=== PATIENT | male | born 1935 | race Caucasian/White ===

== ENCOUNTER → 2020-08-23 | Outpatient (CLI) | payer OTHER ==
[~2020-08-23] MED LIST: ACTOS15 MG PO; AMIODARONE HCL400 MG PO; AMLODIPINE BESYL5 MG PO; ASA81BEC PO; ASPIR 8181 MG PO; ASPIRIN81 M2 PO; ASPRIMOX 325 M325 MG PO; B COMPLEX WITH1 EACH PO; CORDARONE200 MG PO; COREG6.25 MG PO; COZAAR100 MG PO; ECONAZOLE NITRA30 GM; FISH OIL 1,0001 EAC5 PO; FISH OIL 1,001000 M2 PO; HYDROCODON-ACE1 EAC7 PO; HYZAAR 100-251 EACH PO; IMDUR 30 MG TAB30 M1 PO; ISOSORBIDE MONO30 M1 PO; LASIX 20 MG TAB20 MG PO; LIPITOR20 MG PO; LOSARTAN-HCTZ1 EAC1 PO; MULTI-VITAMIN1 EAC5 PO; MULTIVITAMINS1 EAC7 PO; NATURAL B-1001 EACH PO; NITROSTAT0.4 MG SUBLING; PACERONE 200 M200 MG PO; PAIN & FEVER325 MG PO; PAXIL10 MG; PERCOCET 5-3251 EACH PO; PIOGLITAZONE15 MG PO; PLAVIX 75 MG TA75 M1 PO; POTASSIUM20 PO; PRADAXA75 MG PO; PREDNISONE 20 M20 M1 PO; PRESERVISION A1 EACH PO; PROTONIX40 M1 PO; SIMVASTATIN40 MG PO; SYNTHROID100 MC1 PO; TRAMADOL HCL50 MG PO; VITAMIN B-1100 M1 PO; VITAMIN D1000 UNI1 PO; VITAMIN D31000 UNI2 PO; VITAMIN D3400 UNI2 PO; VYTORIN 10-801 EACH PO; XARELTO20 MG PO; ZETIA10 MG PO; ZOCOR40 MG PO
== END ==
LOC: SJCVC 08:25
PROVIDERS: ATTEND Internal Medicine Cardiovascular Disease
DX: Z45.018 Encounter for adjustment and management of other part of cardiac pacemaker (principal); R94.31 Abnormal electrocardiogram [ECG] [EKG]; I48.0 Paroxysmal atrial fibrillation; I25.5 Ischemic cardiomyopathy; I44.2 Atrioventricular block, complete; I73.9 Peripheral vascular disease, unspecified; I50.20 Unspecified systolic (congestive) heart failure; I11.0 Hypertensive heart disease with heart failure; E78.5 Hyperlipidemia, unspecified; I25.810 Atherosclerosis of coronary artery bypass graft(s) without angina pectoris; E11.9 Type 2 diabetes mellitus without complications; Z82.49 Family history of ischemic heart disease and other diseases of the circulatory system; Z87.891 Personal history of nicotine dependence; Z79.899 Other long term (current) drug therapy; Z86.73 Personal history of transient ischemic attack (TIA), and cerebral infarction without residual deficits; Z95.1 Presence of aortocoronary bypass graft

== ENCOUNTER → 2020-08-24 | Outpatient (CLI) | payer OTHER | LOC: LAB 07:41 | PROVIDERS: ATTEND Internal Medicine Cardiovascular Disease | DX: Z01.812 Encounter for preprocedural laboratory examination (principal); Z20.828 Contact with and (suspected) exposure to other viral communicable diseases ==

== ENCOUNTER 2020-08-29 06:24 | Observation (INO) | payer OTHER ==
[2020-08-29] VITALS (11 sets, daily range): BP systolic 139–184; BP diastolic 70–110
[~2020-08-29] VITALS: Ht 160 cm; Wt 73.1 kg
[2020-08-29 07:58] LABS: ABSOLUTE NEUTROPHILS 4.9 thou/uL (1.4-8.2); BASOPHILS 1.2 % (0.0-2.0); EOSINOPHILS 4.2 % (0.0-3.0); HEMATOCRIT 40.3 % (42.0-52.0); HEMOGLOBIN 13.3 gm/dL (14.0-18.0); LYMPHOCYTES 12.7 % (24.0-44.0); MCH 31.2 pg (26.0-34.0); MCHC 33.1 g/dL (28.0-37.0); MCV 94.2 fL (80.0-100.0); MONOCYTES 11.5 % (1.0-8.0); PLATELET COUNT 183 thou/uL (150-400); POLYS 70.4 % (36.0-66.0); RBC 4.28 mil/uL (4.50-6.00); RDW 13.2 % (10.5-14.5); WBC 6.9 thou/uL (4.0-11.0)
[2020-08-29 08:00] LABS: CREATININE 1.2 mg/dL (0.7-1.3); POTASSIUM 3.9 mmol/L (3.5-5.1)
[2020-08-29 08:01] LABS: APTT 28.6 Seconds (24.5-32.8); INR 1.1; PROTIME 10.8 Seconds (9.3-11.4)
[2020-08-29 08:08] LABS: ALBUMIN 3.9 g/dL (3.4-5.0); TOTAL BILIRUBIN 0.6 mg/dL (0.2-1.0); TOTAL PROTEIN 7.1 g/dL (6.4-8.2)
--- NOTE | 2020-08-29 20:01 | NUR ---
PT CARE ASSUMED AT 1230. ASSESSMENT CHARTED. MEDICATION CHARTED. PT HAS HIGH BP AND CHEST PAIN AT PACER SIGHT. DR HILL CONTACTED X 3. V PACED. BILAT FA IV'S. AO X 4. BI VENTRICULAR PACER REDO; UNABLE TO PASS DEFIBRILLATOR WIRE.
--- NOTE | 2020-08-30 04:30 | NUR ---
ASSESSMENTS CHARTED, MEDS CHARTED GIVEN. PATIENT WENT TO [facility] DURING THE DAY FOR A NEW PM/ICD. THEY WERE UNABLE TO THREAD NEW WIRES FOR THE ICD. PER CHEST XRAY A WIRE IS EXTENDING UP FROM LEFT PACEMAKER. PACEMAKER WILL NEED TO BE INTERREGATED THIS AM. SINCE THE WIRES WERE ALREADY IN PLACE FROM PREVIOUS PM, PATIENT HAS NOT BEEN IN A LIMB IMMOBILIZER. PT HAS REMAINED ON BEDREST DURING NIGHT. STATES HE STILL HAS ANGINA SIMILAR TO WHAT HE HAS AT HOME. FALL PRECAUTIONS IN PLACE.
[2020-08-30 05:32] VITALS: BP 156/81
[2020-08-30 08:00] VITALS: BP 149/72
[2020-08-30 08:15] VITALS: BP 156/81
[2020-08-30 09:54] VITALS: BP 156/81
--- NOTE | 2020-08-30 12:06 | NUR ---
PT CARE ASSUMED AT 0700. ASSESSMENT CHARTED. MEDICATION CHARTED. SOTO SHEET SIGNED. PACER REDO INTEROGGATED. BILAT FA IV'S. AO X4. PT TO BE DISCHARGED TO HOME. IV'S D/C'D. TELEMETRY D/C'D. PAPERWORK SIGNED.
--- NOTE | 2020-09-01 13:36 | P ---
[facility] [place] [address] PROCEDURE REPORT Name: LIBRA NGO JR Room #: 207-P [facility] M.RCarmencita#: [id number] Admission: 08/29/20 Attend Phys: Nikko Davison MD Discharge: 08/30/20 Date of : 39 Report #: [id number] THIS REPORT FOR: cc: Jose M Camp MD, Alberto MD Couchonnal,Nikko Curiel MD ~ CC: Jose M Davison DATE OF SERVICE: 08/29/2020 Upgrade to a biventricular ICD. PREOPERATIVE DIAGNOSES: 1. Complete heart block, status post pacemaker implantation. 2. Ischemic cardiomyopathy. 3. Chronic right ventricular pacing. PROCEDURES PERFORMED: Upgrade to a biventricular pacemaker. HISTORY: The patient is an 84-year-old male with a history of ischemic cardiomyopathy, status post prior CABG, as well as complete heart block, status post Biotronik pacemaker implantation back in February 2017. The patient has had worsening heart failure with an EF of 20-25% with chronic RV pacing and is here for upgrade to a biventricular ICD. ANESTHESIA: The patient underwent MAC anesthesia with no anesthesia related complications. DESCRIPTION OF PROCEDURE: The patient underwent informed consent. We discussed the details of the procedure including the risks, which include but not limited to bleeding, infection, vascular damage, cardiac perforation and pneumothorax. He understood these risks and is willing to proceed. The patient was brought to EP laboratory in fasting and sedated state, prepped and draped in a sterile fashion. 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 There were collaterals and there appeared to be some scant contrast that did cross at the site of occlusion. Therefore, we decided to attempt to cross this occlusion. I injected lidocaine at the incision site. The pocket was opened and device and the RV lead was disconnected and connected to the pacing wires for backup pacing. Next, I obtained access to the axillary vein and attempted with a J-tipped wire to cross this blockage, but this was unsuccessful. I then attempted with a Wholey wire and again this would not cross the obstruction. I therefore used a Glidewire and after approximately 10 minutes, was able to [facility] [address] [place] [address] PROCEDURE REPORT Name: LIBRA NGO Room #: 207-P [facility] Mike Gutierres#: [id number] Admission: 08/29/20 Attend Phys: Nikko Davison MD Discharge: 08/30/20 Date of : 39 Report #: [id number] maneuver this pass the area of stenosis and get to the level of the RA-SVC junction. I then placed a 6-Sudanese short sheath via this wire and performed a contrast injection and it appeared that I had crossed the stenosis and there appeared to be a good flow from the SVC into the right atrium. I therefore upgraded to a 10-Sudanese short sheath and was eventually able to get a Wholey wire into the right atrium and down into the inferior vena cava. Via this 10-Sudanese short sheath, I placed my [place] coronary sinus guide sheath and quickly gained access to the coronary sinus. 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 Initially attempted to obtain access to this with just the lead, but this was unsuccessful. Therefore, I used an inner guide sheath and was able to advance this into this side branch. The side branch then torqued, took a la's hook trajectory down to the distal aspect of the vessel. Via this sheath, I was able to slowly advance the lead into this distal branch and we had great pacing and sensing thresholds here. There was no phrenic nerve capture either. The 2 sheaths were split. The lead remained in position and the lead was sutured to prepectoral fascia using Ethibond suture. There was significant bleeding around the leads, so I did perform a [id number] suture around the tissue and around the suture sleeve to improve hemostasis. Given the significant stenosis and is small size, we decided to not perform upgrade to an ICD and instead decided to upgrade him to a biventricular pacemaker only. The leads were connected to the new device. Tug tests were performed. The leads were tested and found to be functioning within normal limits. A TYRX antibiotic pouch was placed in the pocket given his high risk for infection and the pocket was closed in 2 layers using 2-0 for the deep layer, 3-0 for the middle layer and surgical glue was placed to outer skin layer. The patient awoke neurologically and hemodynamically intact. No complications and no significant bleeding. CONCLUSIONS: 1. Successful upgrade to a biventricular pacemaker. 2. Satisfactory atrial, right ventricular and left ventricular pacing and sensing thresholds. <ELECTRONICALLY SIGNED> By: Nikko Davison MD 09/01/20 [id number] Nikko Davison MD /nt
== END 2020-08-30 11:28 | disposition home or self-care (01) ==
LOC: CATH 06:24 → 2N 12:29 → CATH 12:30 → 2N 12:30 → CATH 13:19 → 2N 08-30 11:28
PROVIDERS: ADMIT Internal Medicine Cardiovascular Disease; ATTEND Internal Medicine Cardiovascular Disease
DX: I44.2 Atrioventricular block, complete (principal); I50.22 Chronic systolic (congestive) heart failure; I25.5 Ischemic cardiomyopathy; I48.91 Unspecified atrial fibrillation; Z79.899 Other long term (current) drug therapy; Z79.01 Long term (current) use of anticoagulants; Z95.1 Presence of aortocoronary bypass graft
CPT/HCPCS: 62110; 62900; 70005

== ENCOUNTER → 2020-09-06 | Outpatient (CLI) | payer OTHER | LOC: SJCVC 10:37 | PROVIDERS: ATTEND Internal Medicine Cardiovascular Disease | DX: Z95.810 Presence of automatic (implantable) cardiac defibrillator (principal); I44.1 Atrioventricular block, second degree; I50.20 Unspecified systolic (congestive) heart failure ==

== ENCOUNTER → 2020-12-13 | Outpatient (CLI) | payer OTHER | LOC: SJCVC 10:21 | PROVIDERS: ATTEND Internal Medicine Cardiovascular Disease | DX: I48.0 Paroxysmal atrial fibrillation (principal); R94.31 Abnormal electrocardiogram [ECG] [EKG]; I11.0 Hypertensive heart disease with heart failure; Z95.0 Presence of cardiac pacemaker; I44.1 Atrioventricular block, second degree; E11.51 Type 2 diabetes mellitus with diabetic peripheral angiopathy without gangrene; I50.22 Chronic systolic (congestive) heart failure; E78.5 Hyperlipidemia, unspecified; I73.9 Peripheral vascular disease, unspecified; I25.5 Ischemic cardiomyopathy; E78.00 Pure hypercholesterolemia, unspecified; Z95.1 Presence of aortocoronary bypass graft; Z88.8 Allergy status to other drugs, medicaments and biological substances; Z79.899 Other long term (current) drug therapy; Z86.73 Personal history of transient ischemic attack (TIA), and cerebral infarction without residual deficits; Z87.891 Personal history of nicotine dependence; Z82.49 Family history of ischemic heart disease and other diseases of the circulatory system ==

== ENCOUNTER → 2021-12-19 | Outpatient (CLI) | payer OTHER | END | disposition home or self-care (01) | LOC: SJCVC 09:13 | PROVIDERS: ATTEND Internal Medicine Cardiovascular Disease | DX: R94.31 Abnormal electrocardiogram [ECG] [EKG] (principal); I10 Essential (primary) hypertension; I73.9 Peripheral vascular disease, unspecified; I48.91 Unspecified atrial fibrillation; E78.5 Hyperlipidemia, unspecified; G45.9 Transient cerebral ischemic attack, unspecified; I25.10 Atherosclerotic heart disease of native coronary artery without angina pectoris; E11.9 Type 2 diabetes mellitus without complications; Z95.1 Presence of aortocoronary bypass graft; Z95.0 Presence of cardiac pacemaker; Z88.6 Allergy status to analgesic agent; Z91.041 Radiographic dye allergy status; Z88.8 Allergy status to other drugs, medicaments and biological substances; Z98.890 Other specified postprocedural states; Z79.899 Other long term (current) drug therapy; Z87.891 Personal history of nicotine dependence ==